=== PATIENT | male | born 1965 | race Caucasian/White ===

== ENCOUNTER 2019-12-11 20:50 | Emergency (ER) | payer BC ==
[~2019-12-11] VITALS: Ht 182.9 cm; Wt 108.9 kg
[~2019-12-11 20:50] MED LIST changes: -FENTANYL CITRATE/PF 100MCG/2 ML INJ ONE; -HEPARIN SOD (PORCINE) 1000 UNIT/ML 30ML ONE; -HEPARIN SOD/SOD CHLORIDE 2,000 ML ONE; -IOPAMIDOL 370 MG/ML 200 ML INFUS..BTL INJ ONE; -LIDOCAINE HCL 2% LOCAL 20 ML VIAL ONE; -MIDAZOLAM HCL 2 MG/2 ML VIAL ONE; -NITROGLYCERIN/D5W 200 MCG/ML 250 ML ONE; -SODIUM CHLORIDE 0.9% 1000ML 1,000 ML ONE; -VERAPAMIL HCL 2.5 MG/ML 2 ML VIAL ONE
--- OUTSIDE RECORDS SUMMARY | 2019-12-11 20:51 | XMS REPORT | Clinical Summary ---
Author Author [place] [facility] Address Unknown Phone Unavailable Care Team Providers Care Hairspring Adjuster Name Role Phone Dre Rivera MD PCP Allergies No Known Allergies [...] Encounters Care Team Description Date Type Specialty oRb Schwab MD EGD WITH BIOPSIES 09/15/2019 Surgery Gastroenterology Rhoda Ventura MD Felan, Veronica Lynn, NP 09/15/2019 Anesthesia Gastroenterology Event Rob Schwab MD 09/15/2019 Hospital Gastroenterology Encounter Mounika Sharma MA Esophageal thickening (Primary Dx) 03/13/2019 Orders Only Cardiothoracic Surg Thomas Dunn MD Encounter for follow-up surveillance of [...] Comments Vital Sign 165/70 09/15/2019 11:37 AM R[employer]ER [employer] Blood Pressure 81 09/15/2019 11:37 AM R[employer] Pulse 36.2 C (97.1 F) 09/15/2019 11:37 AM R[employer] C[employer] Temperature 18 09/15/2019 11:37 AM ROUGHER [employer] C[employer] Respiratory Rate 98% 09/15/2019 11:37 AM ROUGHER [employer] CEMENT Oxygen Saturation - - Inhaled Oxygen Concentration 109 kg (240 lb 9.6 oz) 09/15/2019 10:28 AM R[employer]ER [employer] C[employer] Weight 182.9 cm (6') 09/15/2019 10:28 AM R[employer] C[employer] Height 32.63 09/15/2019 10:28 AM R[employer]ER [employer] CEMENT Body Mass Index Plan of Treatment Health Maintenance Due Date Last Done Comments COLONOSCOPY SCREENING 2013 SHINGLES VACCINES (#1) 2013 INFLUENZA VACCINE 02/21/2020 Implants Device Identifier Shelf Expiration Date Model / Serial / L ot Implanted Type Area Manufactur er [id number] / / Kit Selnt Plrl Air Leak 4ml Strl Surgical N/A: N/A NEOMEND Progel - [id number] Implants; INC Implanted: 12/13/2016 at [facility] Expanders; HOSPITAL (Quantity not on file) Extenders; Surgical Wires Procedures Comments Procedure Name Priority Date/Time Associated Diag nosis SURGICAL PATHOLOGY Routine 09/15/2019 REQUEST 12:50 PM ROUGHER FOR CEMENT ESOPHAGOGASTRODUODENOSCOP 09/15/2019 Family hist ory of Y (EGD) 10:55 AM R[employer]ER [employer] CEMENT malignant neoplasm of digestive organs Abnormal findings on diagnostic imaging of other specified body structures Chronic GERD Personal history of other malignant neoplasm of bronchus and lung Chronic obstructive pulmonary disease, unspecified (HCC) CT CHEST WO CONTRAST Routine 02/28/2019 Personal history of lung 1:24 PM CDT cancer after 12/10/2018 Results * Surgical pathology request (09/15/2019 12:50 PM R[employer]) [facility] DEPARTMENT OF PATHOLOGY AND GENOMIC MEDICINE Surgical See link below for PDF Lab [facility] DEPART [facility] pathology Report OF PATHOLOGY report AND GENOMIC MEDICINE Result status This is Final Report for [facility] DEPARTME NT [id number] OF PATHOLOGY AND GENOMIC MEDICINE Specimen Performing Organization Address City/State/Zipcode Ph one Number [facility] DEPARTMENT OF [address] [place] [id number] PATHOLOGY AND GENOMIC MEDICINE * CT Chest [...] Performing Organization Address City/State/Zipcode Ph one Number [facility] [address] [place] [address] after 12/10/2018 Insurance Type Payer Benefit Subscriber ID Effective Phone Address Plan / Dates Group PPO BCBS BCBS xxxxxxxxxxxx 2018-P CHOICE resent PPO/JENNIFER SAUCEDO PPO [id number] Advance Directives For more information, please contact: [phone] Patient Lump Inspector Explanation Type Date Recorded Advance Directives, 12/07/2016 7:17 AM Living Will and Medical Power of Drapery Supervisor
[2019-12-11] MEDS ORDERED: SODIUM CHLORIDE 0.9% 1000ML 1,000 ML IV STA (20:52)
--- NOTE | 2019-12-11 20:57 | Emergency Department Note ---
History of Present Illnes History of Present Illness Chief Complaint: General Medicine Complaints History of Present Illness This is a 54 year old male brought by family member for evaluation of a syncopal episode after ingesting 3 beers . Patient with cardiac catheterization this AM. States that he may have fallen onto his R UE. Splinted prior to arrival. Historian: Patient, Family Member Toe Puller Required: No Onset (how long ago): second(s) ([employer]) Radiation: non-radiation Severity: moderate Onset quality: sudden Progression: resolved Chronicity: new Context: recent surgery Relieving factors: none Exacerbating factors: none Associated symptoms: denies other symptoms Treatments prior to arrival: none Past Medical/Family History Physician Review I have reviewed the patient's past medical and family history. Any updates have been documented here. Past Medical History Recent Fever: No Clinical Suspicion of Infectio: No New/Unexplained Change in Ment: No Past Medical History: Hypertension Other Surgery: Lung resection Social History Smoking Cessation: Former smoker Counseling Performed: No Alcohol Use: Occasional Any Illegal Drug Use: No Review of Systems Review of Systems Constitutional: no symptoms EENTM: no symptoms Cardiovascular: no symptoms Respiratory: no symptoms Gastrointestinal: no symptoms Genitourinary: no symptoms Musculoskeletal: no symptoms Neurological: other (syncope) Psychological: no symptoms Endocrine: no symptoms Hematological/Lymphatic: no symptoms Review of other systems All other systems reviewed and negative. Physical Exam Related Data Allergies: Coded Allergies: No Known Allergies (Unverified , 12/11/19) Triage Vital Signs Vital Signs Date Time Temp Pulse Resp B/P (MAP) Pulse Ox O2 Delivery O2 Flow Rate FiO2 12/11/19 20:51 97.9 72 16 162/93 99 Vital signs reviewed: Yes Physical Exam CONSTITUTIONAL Constitutional: well-developed, well-nourished HENT HENT: normocephalic, atraumatic, oropharynx clear/moist, nose normal HENT L/R: left ext ear normal, right ext ear normal EYES Eyes: PERRL, conjunctivae normal NECK Neck: ROM normal PULMONARY Pulmonary: effort normal, breath sounds normal CARDIOVASCULAR Cardiovascular: regular rhythm, heart sounds normal, capillary refill normal, normal rate GASTROINTESTINAL Abdominal: soft, nontender, bowel sounds normal GENITOURINARY Genitourinary: exam deferred SKIN Skin: warm, dry MUSCULOSKELETAL Musculoskeletal: ROM normal, tenderness (R UE) NEUROLOGICAL Neurological: alert, oriented x 3, no gross motor or sensory deficits PSYCHOLOGICAL Psychological: mood/affect normal, judgement normal Results Laboratory Lab results reviewed: Yes Laboratory comments Cr elevated mildly Troponin neg. Imaging Imaging results reviewed: Yes Impressions [place] [id number] Patient Name: ELOY RODRÍGUEZ MR #: [id number] : 1965 Age/Sex: 54/M Req #: [id number] Adm Physician: Ordered by: ROM MANSFIELD DO Report #: [id number] Location: ER Room/Bed: Procedure: [id number] DX/WRIST COMPLETE RIGHT Exam Date: 12/11/19 Exam Time: 2199 REPORT STATUS: Signed Exam: Right hand radiographs-3 views; right wrist radiographs-3 views History: Fall. Comparison: None. Findings/Impression: Soft tissue edema in the hand. No evidence of acute fracture or malalignment. There are radiopaque likely overlying densities along the ulnar aspect of the hand. Possible laceration along the dorsal aspect of the fifth finger and in the dorsal hand. Mild scattered degenerative changes. There is a predominantly lucent lesion in the distal ulna which measures up to 1.8 cm. There is mild sclerotic component along the distal aspect. No evidence of periosteal reaction or bony destructive changes. 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 Suggest correlation for any point tenderness. Recommend follow-up radiograph in 6 months. Signed by: Dr. Denis Mccarthy MD on 12/11/2019 11:46 PM Dictated By: DENIS MCCARTHY MD [id number] Transcribed By: SELVIN on 12/11/190 COPY TO: ROM MANSFIELD DO~ [place] [id number] [place] [address] Patient Name: ELOY RODRÍGUEZ MR #: [id number] : 1965 Age/Sex: 54/M Req #: [id number] Adm Physician: Ordered by: ROM MANSFIELD Report #: [id number] Location: ER Room/Bed: Procedure: [id number] DX/HAND RIGHT 2 VIEWS Exam Date: 12/11/19 Exam Time: 0 REPORT STATUS: Signed Exam: Right hand radiographs-3 views; right wrist radiographs-3 views History: Fall. Comparison: None. Findings/Impression: Soft tissue edema in the hand. No evidence of acute fracture or malalignment. There are radiopaque likely overlying densities along the ulnar aspect of the hand. Possible laceration along the dorsal aspect of the fifth finger and in the dorsal hand. Mild scattered degenerative changes. There is a predominantly lucent lesion in the distal ulna which measures up to 1.8 cm. There is mild sclerotic component along the distal aspect. No evidence of periosteal reaction or bony destructive changes. 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 Suggest correlation for any point tenderness. Recommend follow-up radiograph in 6 months. Signed by: Dr. Denis Mccarthy MD on 12/11/2019 11:46 PM Dictated By: DENIS MCCARTHY MD 45 Transcribed By: SELVIN on 12/11/192345 COPY TO: SHYLAROM JACKSON~ [place] [address] Patient Name: ELOY RODRÍGUEZ MR #: [id number] : 1965 Age/Sex: 54/M Req #: [id number] Adm Physician: Ordered by: SHYLA ROM JACKSON Report #: [id number] Location: Room/Bed: ____ Procedure: [id number] CT/CT BRAIN WO Exam Date: 12/11/19 Exam Time: 2199 REPORT STATUS: Signed History:Passed out today. Comparison studies:None Technique: Axial images were obtained from the skull base to the vertex. Coronal and sagittal images reconstructed from the axial data. Intravenous contrast: None Dose modulation, iterative reconstruction, and/or weight based adjustment of the mA/kV was utilized to reduce the radiation dose to as low as reasonably achievable. Findings: Scalp/skull: No abnormalities. Extra-axial spaces: No masses. No fluid collections. Brain sulci: Age-appropriate. Ventricles: Age-appropriate. No hydrocephalus. Parenchyma: No abnormal densities. No masses, hemorrhage, acute or chronic cortical vascular insults. Sellar/suprasellar region: No abnormalities. Craniocervical junction: Patent foramen magnum. No Chiari one malformation. Incidental findings: Atherosclerotic calcifications in the carotid siphons . Impression: No acute abnormalities. Signed by: DR Dannie Evans M.D. on 12/11/2019 10:32 PM Dictated By: DANNIE AMBROSE MD 31 Transcribed By: SELVIN on 12/11/192231 COPY TO: ROM MANSFIELD DO~ [place] [address] Patient Name: ELOY RODRÍGUEZ MR #: [id number] : 1965 [facility] 54[id number] Req #: [id number] Adm Physician: Ordered by: ROM MANSFIELD DO Report #: [id number] Location: ER Room/Bed: Procedure: [id number] CT/CT CHEST W Exam Date: 12/11/19 Exam Time: 2199 REPORT STATUS: Signed EXAM: CT Chest WITH contrast- Pulmonary Embolism Protocol INDICATION: Passed out. COMPARISON: None TECHNIQUE: Chest was scanned utilizing a multidetector helical scanner from the lung apex through the level of the diaphragm after administration of IV contrast. Coronal and sagittal reformations were obtained. Pulmonary embolism protocol was performed. IV CONTRAST: 100 cc of Isovue 370 RADIATION DOSE: Total DLP: 637 mGy*cm Dose modulation, iterative reconstruction, and/or weight based adjustment of the mA/kV was utilized to reduce the radiation dose to as low as reasonably achievable. COMPLICATIONS: None FINDINGS: LINES/ TUBES: None. PULMONARY ARTERIES: Motion artifact somewhat limits evaluation. No filling defect is identified within the pulmonary arteries to the segmental level. The subsegmental pulmonary arteries are not well opacified. Main pulmonary artery measures 2.0 cm in diameter. LUNGS AND AIRWAYS: The central airways are patent. Status post left upper lobectomy. Incidental azygos lobe. Motion artifact somewhat limits evaluation. Moderate upper lung predominant emphysematous changes in the right lung. Likely linear subsegmental atelectasis versus scarring in the left lower lobe at the base. PLEURA: The pleural spaces are clear. HEART AND MEDIASTINUM: The thyroid gland is normal. No mediastinal, hilar or axillary lymphadenopathy. The heart is normal in size.. There is no pericardial effusion. Scattered coronary and aortic atherosclerotic calcifications. UPPER ABDOMEN: Limited contrast-enhanced views of the upper abdomen. There is a 1.6 cm right inferior hepatic lobe hypodense lesion (series 2, image 140; -9 Hounsfield units), likely a cyst. Mild fatty atrophy of the pancreas. Moderate hiatal hernia with mild wall thickening within the distal esophagus. BONES: No acute osseous abnormality. No suspicious lytic or blastic lesions. Left posterior thoracotomy changes in the posterior ninth and eighth ribs. SOFT TISSUES: Unremarkable. IMPRESSION: Somewhat limited by motion artifact. No evidence of pulmonary embolism to the level of the segmental pulmonary arteries. Status post left upper lobectomy. Moderate emphysematous changes in the right lung. Scattered coronary and aortic atherosclerotic calcifications. Moderate hiatal hernia with mild wall thickening within the distal esophagus, which may reflect gastroesophageal reflux with esophagitis. Suggest clinical correlation. Signed by: Dr. 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 Patient AO x 3 prior to discharge in [facility]. Plan to d/c to home with f/u with cardiology as outpatient. Cardiac catheterization report reviewed. Patient's Hand XR reviewed with patient and given outpatient f/u with Dr Inocente Le for further evaluation. Depart Disposition: HOME, SELF-CARE Last Vital Signs Date Time Temp Pulse Resp B/P (MAP) Pulse Ox O2 Delivery O2 Flow Rate FiO2 12/12/19 00:16 98.0 76 17 146/79 97 Home Meds Reported Medications Tiotropium Br/Olodaterol HCl (Stiolto Respimat Inhal [place]) 4 Gm Mist.inhal, 2 INH INH DAILY 12/10/19 Losartan Potassium (LOSARTAN POTASSIUM) 100 Mg Tablet, 100 MG PO DAILY, TAB 12/10/19 Acetaminophen (Tylenol) 325 Mg Capsule, 325 MG PO PRN PRN for mod 12/10/19 Amlodipine Besylate (AMLODIPINE BESYLATE) 5 Mg Tablet, 5 MG PO DAILY, #30 TAB 12/10/19 Pantoprazole Sodium* (PROTONIX) 40 Mg Tablet.dr, 40 MG PO BID, TAB 12/10/19 [place]-3 Fatty Acids/Fish Oil (FISH OIL 1,000 MG CAPSULE) 1 Each Capsule, 1 CAP PO DAILY 12/10/19 Medications in the ED Sodium Chloride 1,000 ml @ 0 mls/hr Q0M STAT IV Last administered on 12/11/19at 22:33; Admin Dose 999 MLS/HR; Start 12/11/19 at 20:52; Stop 12/11/19 at 20:54; Status DC Aspirin 81 mg PRN ONCE PO ; Start 12/11/19 at 21:00; Stop 12/11/19 at 21:17; Status DC Iopamidol 74,000 mg STK-MED ONCE INJ ; Start 12/11/19 at 22:04; Stop 12/11/19 at 21:59; Status DC Sodium Chloride 50 ml @ ud STK-MED ONCE .ROUTE ; Start 12/11/19 at 22:05; Stop 12/11/19 at 21:59; Status DC ROM MANSFIELD DO December 11, 2019 20:57
[2019-12-11] MEDS ORDERED: ASPIRIN 81 MG CHEW TAB PO ONE (21:00)
[2019-12-11 21:16] LABS: BASOPHILS # (AUTO) 0.1 (0.0-0.1); BASOPHILS % 0.7 % (0.0-1.0); EOSINOPHILS # (AUTO) 0.2 (0.0-0.4); EOSINOPHILS % 2.3 % (0.0-6.0); HEMATOCRIT 42.6 % (38.2-49.6); HEMOGLOBIN 14.1 g/dL (14.0-18.0); LYMPHOCYTES # (AUTO) 2.1 (1.0-3.2); LYMPHOCYTES % 29.2 % (18.0-39.1); MEAN CORPUSCULAR HEMOGLOBIN 30.3 pg (28-32); MEAN CORPUSCULAR HGB CONC 33.1 g/dL (31-35); MEAN CORPUSCULAR VOLUME 91.4 fL (81-99); MONOCYTES # (AUTO) 0.5 (0.2-0.8); MONOCYTES % 7.7 % (4.4-11.3); NEUTROPHILS # (AUTO) 4.2 (2.1-6.9); NEUTROPHILS % 59.7 % (38.7-80.0); PLATELET COUNT 288 x10e3/uL (140-360); RED BLOOD COUNT 4.66 x10e6/uL (4.3-5.7); RED CELL DISTRIBUTION WIDTH 13.4 % (11.7-14.4)
[2019-12-11 21:40] LABS: ALBUMIN 3.8 g/dL (3.5-5.0); ALBUMIN/GLOBULIN RATIO 1.1 (0.8-2.0); ANION GAP 17.4 mmol/L (8-16); CALCIUM 9.4 mg/dL (8.4-10.2); CREATININE, SERUM 1.72 mg/dL (0.72-1.25); POTASSIUM 4.4 mmol/L (3.5-5.1)
[2019-12-11 21:46] LABS: CREATINE KINASE MB 0.8 ng/mL (0-5.0)
[2019-12-11] MEDS ORDERED: IOPAMIDOL 370 MG/ML 200 ML INFUS..BTL INJ ONE (22:04)
[2019-12-11] MEDS ORDERED: SODIUM CHLORIDE 0.9% 50ML 50 ML ONE (22:05)
--- NOTE | 2019-12-11 22:35 | Diagnostic Imaging Report ---
History:Passed out today. Comparison studies:None Technique: Axial images were obtained from the skull base to the vertex. Coronal and sagittal images reconstructed from the axial data. Intravenous contrast: None Dose modulation, iterative reconstruction, and/or weight based adjustment of the mA/kV was utilized to reduce the radiation dose to as low as reasonably achievable. Findings: Scalp/skull: No abnormalities. Extra-axial spaces: No masses. No fluid collections. Brain sulci: Age-appropriate. Ventricles: Age-appropriate. No hydrocephalus. Parenchyma: No abnormal densities. No masses, hemorrhage, acute or chronic cortical vascular insults. Sellar/suprasellar region: No abnormalities. Craniocervical junction: Patent foramen magnum. No Chiari one malformation. Incidental findings: Atherosclerotic calcifications in the carotid siphons . Impression: No acute abnormalities. Signed by: DR Dannie Evans M.D. on 12/11/2019 10:32 PM
--- NOTE | 2019-12-11 22:39 | Diagnostic Imaging Report ---
EXAM: CT Chest WITH contrast- Pulmonary Embolism Protocol INDICATION: Passed out. COMPARISON: None TECHNIQUE: Chest was scanned utilizing a multidetector helical scanner from the lung apex through the level of the diaphragm after administration of IV contrast. Coronal and sagittal reformations were obtained. Pulmonary embolism protocol was performed. IV CONTRAST: 100 cc of Isovue 370 RADIATION DOSE: Total DLP: 637 mGy*cm Dose modulation, iterative reconstruction, and/or weight based adjustment of the mA/kV was utilized to reduce the radiation dose to as low as reasonably achievable. COMPLICATIONS: None FINDINGS: LINES/ TUBES: None. PULMONARY ARTERIES: Motion artifact somewhat limits evaluation. No filling defect is identified within the pulmonary arteries to the segmental level. The subsegmental pulmonary arteries are not well opacified. Main pulmonary artery measures 2.0 cm in diameter. LUNGS AND AIRWAYS: The central airways are patent. Status post left upper lobectomy. Incidental azygos lobe. Motion artifact somewhat limits evaluation. Moderate upper lung predominant emphysematous changes in the right lung. Likely linear subsegmental atelectasis versus scarring in the left lower lobe at the base. PLEURA: The pleural spaces are clear. HEART AND MEDIASTINUM: The thyroid gland is normal. No mediastinal, hilar or axillary lymphadenopathy. The heart is normal in size.. There is no pericardial effusion. Scattered coronary and aortic atherosclerotic calcifications. UPPER ABDOMEN: Limited contrast-enhanced views of the upper abdomen. There is a 1.6 cm right inferior hepatic lobe hypodense lesion (series 2, image 140; -9 Hounsfield units), likely a cyst. Mild fatty atrophy of the pancreas. Moderate hiatal hernia with mild wall thickening within the distal esophagus. BONES: No acute osseous abnormality. No suspicious lytic or blastic lesions. Left posterior thoracotomy changes in the posterior ninth and eighth ribs. SOFT TISSUES: Unremarkable. IMPRESSION: Somewhat limited by motion artifact. No evidence of pulmonary embolism to the level of the segmental pulmonary arteries. Status post left upper lobectomy. Moderate emphysematous changes in the right lung. Scattered coronary and aortic atherosclerotic calcifications. Moderate hiatal hernia with mild wall thickening within the distal esophagus, which may reflect gastroesophageal reflux with esophagitis. Suggest clinical correlation. Signed by: Dr. Tereso Chin MD on 12/11/2019 10:35 PM
--- NOTE | 2019-12-11 23:49 | Diagnostic Imaging Report ---
Exam: Right hand radiographs-3 views; right wrist radiographs-3 views History: Fall. Comparison: None. Findings/Impression: Soft tissue edema in the hand. No evidence of acute fracture or malalignment. There are radiopaque likely overlying densities along the ulnar aspect of the hand. Possible laceration along the dorsal aspect of the fifth finger and in the dorsal hand. Mild scattered degenerative changes. There is a predominantly lucent lesion in the distal ulna which measures up to 1.8 cm. There is mild sclerotic component along the distal aspect. No evidence of periosteal reaction or bony destructive changes. 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 Suggest correlation for any point tenderness. Recommend follow-up radiograph in 6 months. Signed by: Dr. Tereso Chin MD on 12/11/2019 11:46 PM
== END 2019-12-12 00:16 | disposition home or self-care (01) ==
LOC: ER 20:50
DX: R55 Syncope and collapse (principal); S00.83XA Contusion of other part of head, initial encounter; R60.9 Edema, unspecified; W18.30XA Fall on same level, unspecified, initial encounter; F10.129 Alcohol abuse with intoxication, unspecified; D49.2 Neoplasm of unspecified behavior of bone, soft tissue, and skin; I10 Essential (primary) hypertension
CPT/HCPCS: 36415; 70450; 71260; 73110; 73120; 80053; 80320; 82550; 82553; 83880; 84484; 85025; 99284; J7030; Q9967

== ENCOUNTER → 2019-12-11 | Day surgery (SDC) | payer BC, OTHER ==
[2019-12-08 12:14] LABS: BASOPHILS # (AUTO) 0.1 (0.0-0.1); BASOPHILS % 0.6 % (0.0-1.0); EOSINOPHILS # (AUTO) 0.2 (0.0-0.4); HEMATOCRIT 41.9 % (38.2-49.6); HEMOGLOBIN 13.8 g/dL (14.0-18.0); LYMPHOCYTES # (AUTO) 2.3 (1.0-3.2); LYMPHOCYTES % 29.1 % (18.0-39.1); MEAN CORPUSCULAR HEMOGLOBIN 30.9 pg (28-32); MEAN CORPUSCULAR HGB CONC 32.9 g/dL (31-35); MEAN CORPUSCULAR VOLUME 93.7 fL (81-99); MONOCYTES # (AUTO) 0.6 (0.2-0.8); MONOCYTES % 7.5 % (4.4-11.3); NEUTROPHILS # (AUTO) 4.7 (2.1-6.9); NEUTROPHILS % 59.5 % (38.7-80.0); PLATELET COUNT 289 x10e3/uL (140-360); RED BLOOD COUNT 4.47 x10e6/uL (4.3-5.7); RED CELL DISTRIBUTION WIDTH 13.4 % (11.7-14.4)
[2019-12-08 12:25] LABS: INR 0.81; PROTHROMBIN TIME 11.7 seconds (11.9-14.5)
[2019-12-08 12:36] LABS: ALBUMIN 3.6 g/dL (3.5-5.0); ANION GAP 13.7 mmol/L (8-16); CALCIUM 9.2 mg/dL (8.4-10.2); CREATININE, SERUM 1.26 mg/dL (0.72-1.25); POTASSIUM 4.7 mmol/L (3.5-5.1)
[~2019-12-11] MED LIST: AMLODIPINE BESYL5 MG PO; FENTANYL CITRATE/PF 100MCG/2 ML INJ ONE; FISH OIL 1,0001 EAC2 PO; HEPARIN SOD (PORCINE) 1000 UNIT/ML 30ML ONE; HEPARIN SOD/SOD CHLORIDE 2,000 ML ONE; IOPAMIDOL 370 MG/ML 200 ML INFUS..BTL INJ ONE; LIDOCAINE HCL 2% LOCAL 20 ML VIAL ONE; LOSARTAN POTAS100 MG PO; MIDAZOLAM HCL 2 MG/2 ML VIAL ONE; NITROGLYCERIN/D5W 200 MCG/ML 250 ML ONE; PANTOPRAZOLE SO40 MG PO; SODIUM CHLORIDE 0.9% 1000ML 1,000 ML ONE; STIOLTO RESPIMAT4 GM INH; TYLENOL325 M2 PO; VERAPAMIL HCL 2.5 MG/ML 2 ML VIAL ONE
[2019-12-11 09:15] VITALS: BP 142/96
[2019-12-11 10:30] VITALS: BP 143/80
--- NOTE | 2019-12-11 10:30 | NUR ---
1030 am RECEIVING NOTE [facility]............................................................... Bedside report received from Franck INIGUEZ. Identifierx2. Alert oriented and appropriate, PERRLA, respirations even and unlabored to room air. Pulses x4 extremities equal and strong. Pedal pulses PT/DP X4 and marked. Cap fill brisk < 3 sec. C rt radial approach No fix,No gross issues pain pallor pressure or dysrhythmia.TR band ok to reduce down at 1030am. Skin warm and dry integrity appears D/I IV 20g to left ac, presents healthy w/o s/s of infiltration or complaint. Abdomen soft and supple. pt offered toileting, denies need to urinate or defecate. No personal affects with patient. Family Jeannette . Pt and family verbalizes understanding of POC. Currently w/o complaint of pain or need. Back to baseline orientation tolerating po intake well.ds/rn
--- NOTE | 2019-12-11 10:30 | NUR ---
1030aRADIAL COMPRESSION REMOVAL NOTE: Initial Cuff volume 13 cc 1030a -3cc Removed No hematoma/bleeding noted with normal neurovascular function. 1045a -5cc Removed No hematoma/ bleeding noted with normal neurovascular function. 1100a -5cc Removed No hematoma/bleeding noted with normal neurovascular function. Air removal completed. Stasis achieved sterile 2x2,Tegaderm, Coban dressing No hematoma, bleeding noted with normal neurovascular function. Wrist splint in place. Pt instructed on POC. Ds/Rn
--- OUTSIDE RECORDS SUMMARY | 2019-12-11 10:37 | XMS REPORT | Clinical Summary ---
Author Author [place] [facility] Address Unknown Phone Unavailable Care Team Providers Care Tankroom Tender Name Role Phone Der Rivera MD PCP Allergies No Known Allergies Medications End Date Status Medication Sig Dispensed Refills Start Date Active ipratropium-albuterol 4 (four) 0 01/10/20 1 (DUO-NEB) 0.5-2.5 mg/mL times a day 8 nebulizer as needed. Active pantoprazole (PROTONIX) Take 40 mg by 0 40 MG EC tablet mouth daily. 0 Active GABAPENTIN ORAL Take by mouth 0 as needed. Active ibuprofen (ADVIL Take by mouth 0 LIQUI-GEL ORAL) as needed. 01/10/2019 gabapentin (NEURONTIN) Take 1 90 capsule 0 300 mg capsule (300 8 capsuleIndications: mg total) by Neuropathic pain mouth 3 (three) times a day. 09/15/2019 Discontinued (Cost of medica tion) glycopyrrolate-formoterol Inhale 2 0 (BEVESPI AEROSPHERE) (two) times a 9-4.8 mcg HFA aerosol day. inhaler Active Problems Problem Noted Date Lung cancer 01/11/2017 Lung nodule 12/13/2016 Encounters Care Team Description Date Type Specialty Rob Schwab MD EGD WITH BIOPSIES 09/15/2019 Surgery Gastroenterology Rhoda Ventura MD Felan, Veronica Lynn, NP 09/15/2019 Anesthesia Gastroenterology Event Rob Schwab MD 09/15/2019 Hospital Gastroenterology Encounter Mounika Sharma MA Esophageal thickening (Primary Dx) 03/13/2019 Orders Only Cardiothoracic Surg hTomas Dunn MD Encounter for follow-up surveillance of lung cancer (Primary Dx); Malignant neoplasm of upper lobe of left lung (HCC) 03/06/2019 Office Visit Cardiothoracic Surg Judith Desouza MA 03/05/2019 Telephone Cardiothoracic Surg Thomas Dunn MD Personal history of lung cancer 02/28/2019 Hospital Radiology Encounter Mounika Sharma MA 02/27/2019 Telephone Cardiothoracic Surg Judith Desouza MA 02/26/2019 Telephone Cardiothoracic Surg lucy magana 12/10/2018 Family History Medical History Relation Name Comments Pancreatic cancer Brother Lung cancer Cousin Heart disease Father Lung cancer Maternal Grandmother Brain cancer Other uncle Colon cancer Other uncle Relation Name Status Comments Brother Cousin Father Maternal Grandmother Other uncle Alive Other uncle Alive Social History Date Tobacco Use Types Packs/Day Years Used Quit: 11/03/2016 Former Smoker Cigarettes 1 48 Smokeless Tobacco: Never Used Tobacco Cessation: Counseling Given: Yes Drinks/Week oz/Week Comments Alcohol Use 10 Cans of beer 10.0 3 beers/night; none last nig ht due to procedure Yes Sex Assigned at Date Recorded Not on file Industry Job Start Date Occupation Not on file Not on file Not on file Travel End Travel History Travel Start No recent travel history available. Last Filed Vital Signs Reading Time Taken Comments Vital Sign 165/70 09/15/2019 11:37 AM ASSEMBLY MECHANIC Blood Pressure 81 09/15/2019 11:37 AM ASSEMBLY MECHANIC Pulse 36.2 C (97.1 F) 09/15/2019 11:37 AM ASSEMBLY MECHANIC Temperature 18 09/15/2019 11:37 AM ASSEMBLY MECHANIC Respiratory Rate 98% 09/15/2019 11:37 AM ASSEMBLY MECHANIC Oxygen Saturation - - Inhaled Oxygen Concentration 109 kg (240 lb 9.6 oz) 09/15/2019 10:28 AM ASSEMBLY MECHANIC Weight 182.9 cm (6') 09/15/2019 10:28 AM ASSEMBLY MECHANIC Height 32.63 09/15/2019 10:28 AM ASSEMBLY MECHANIC Body Mass Index Plan of Treatment Health Maintenance Due Date Last Done Comments COLONOSCOPY SCREENING 2013 SHINGLES VACCINES (#1) 2013 INFLUENZA VACCINE 02/21/2020 Implants Device Identifier Shelf Expiration Date Model / Serial / L ot Implanted Type Area Manufactur er [id number] / / Kit Selnt Plrl Air Leak 4ml Strl Surgical N/A: N/A NEOMEND Progel - [id number] Implants; INC Implanted: 12/13/2016 at [facility] Expanders; HOSPITAL (Quantity not on file) Extenders; Surgical Wires Procedures Comments Procedure Name Priority Date/Time Associated Diag nosis SURGICAL PATHOLOGY Routine 09/15/2019 REQUEST 12:50 PM ASSEMBLY MECHANIC ESOPHAGOGASTRODUODENOSCOP 09/15/2019 Family hist ory of Y (EGD) 10:55 AM ASSEMBLY MECHANIC malignant neoplasm of digestive organs Abnormal findings on diagnostic imaging of other specified body structures Chronic GERD Personal history of other malignant neoplasm of bronchus and lung Chronic obstructive pulmonary disease, unspecified (HCC) CT CHEST WO CONTRAST Routine 02/28/2019 Personal history of lung 1:24 PM CDT cancer after 12/10/2018 Results * Surgical pathology request (09/15/2019 12:50 PM ASSEMBLY MECHANIC) [facility] DEPARTMENT OF PATHOLOGY AND GENOMIC MEDICINE Surgical See link below for PDF Lab [facility] DEPART [facility] pathology Report OF PATHOLOGY report AND GENOMIC MEDICINE Result status This is Final Report for [facility] DEPARTME NT [id number] OF PATHOLOGY AND GENOMIC MEDICINE Specimen Performing Organization Address City/State/Zipcode Ph one Number [facility] DEPARTMENT OF [address] [place] [id number] PATHOLOGY AND GENOMIC MEDICINE * CT Chest Wo Contrast (02/28/2019 1:24 PM CDT) Specimen Narrative Performed At EXAMINATION: RADIANT CT CHEST WO CONTRAST CLINICAL HISTORY: Z85.118 Personal history of other malig nant neoplasm of bronchus and lung, personal history lung cancer TECHNIQUE: Multiple axial images were obtained fro m the lung apices to the lung bases without the administration of intraveno us contrast.The lack of intravenous contrast reduces the sensitivity of det ecting solid organ disease and evaluating vasculature. High-resolution, coronal, and sagittal reformats were obtained.CT imaging was performed with iterative reconstruction technique and/or automated exposure control to reduce radiation dose. COMPARISON: 08/30/2018 FINDINGS: There is focal thickening and mild enha ncement of the distal esophagus. Mass or esophagitis is not excluded. Suggest fu rther evaluation with esophagram or endoscopy. There is a small hiatal vladimir ia. Heart size is normal. The aorta measures within normal limits . The pulmonary artery is within normal limits. A precarinal lymph node is 1.8 x 0.9 cm . Smaller mediastinal lymph nodes are also present. Bilateral multiple lucencies compatible with centrilobular emphysema are greatest in the upper lung zones. A cou ple tiny groundglass nodules are seen in the right upper lobe these are too smal l to well characterize and are nonspecific. Short-term follow-up can be performed to determine if it persists. The largest area is about 3 mm. The liver and spleen are within normal limits in their visible portions. Adrenal glands are within nor mal limits. No suspicious osseous lesion is seen. Degenerative changes of the spine are seen. The liver, gallbladder, pancreas, adren al glands, spleen, and kidneys are within normal limits in their visible portions . A suspicious osseous lesion is not seen. IMPRESSION: Centrilobular emphysema. A few nonspeci fic right upper lobe groundglass nodules. Focal esophageal wall thickening and en hancement. Procedure Note Hm Interface, Radiology Results Incoming - 02/28/2019 1:54 PM CDT EXAMINATION: CT CHEST WO CONTRAST CLINICAL HISTORY: Z85.118 Personal history of other malignant neoplasm of bronchus and lung, personal history lung cancer TECHNIQUE: Multiple axial images were obtained from the lung apices to the lung bases without the administration of intravenous contrast.The lack of intravenous contrast reduces the sensitivity of detecting solid organ disease and evaluating vasculature. High-resolution, coronal, and sagittal reformats were obtained.CT imaging was performed with iterative reconstruction technique and/or automated exposure control to reduce radiation dose. COMPARISON: 08/30/2018 FINDINGS: There is focal thickening and mild enhancement of the distal esophagus. Mass or esophagitis is not excluded. Suggest further evaluation with esophagram or endoscopy. There is a small hiatal hernia. Heart size is normal. The aorta measures within normal limits. The pulmonary artery is within normal limits. A precarinal lymph node is 1.8 x 0.9 cm. Smaller mediastinal lymph nodes are also present. Bilateral multiple lucencies compatible with centrilobular emphysema are greatest in the upper lung zones. A couple tiny groundglass nodules are seen in the right upper lobe these are too small to well characterize and are nonspecific. Short-term follow-up can be performed to determine if it persists. The largest area is about 3 mm. The liver and spleen are within normal limits in their visible portions. Adrenal glands are within normal limits. No suspicious osseous lesion is seen. Degenerative changes of the spine are seen. The liver, gallbladder, pancreas, adrenal glands, spleen, and kidneys are within normal limits in their visible portions. A suspicious osseous lesion is not seen. IMPRESSION: Centrilobular emphysema. A few nonspecific right upper lobe groundglass nodules. Focal esophageal wall thickening and enhancement. Performing Organization Address City/State/Zipcode [facility] Number [facility] [address] [place] [address] after 12/10/2018 Insurance Type Payer Benefit Subscriber ID Effective Phone Address Plan / Dates Group PPO BCBS BCBS xxxxxxxxxxxx 2018-P CHOICE resent PPO/JENNIFER SAUCEDO PPO [id number] Advance Directives For more information, please contact: [phone] Patient Biology Intern Explanation Type Date Recorded Advance Directives, 12/07/2016 7:17 AM Living Will and Medical Power of [employer]icon[employer] Package Symbol Stamper
[2019-12-11 10:45] VITALS: BP 114/74
[2019-12-11 11:00] VITALS: BP 137/77
[2019-12-11 11:30] VITALS: BP 149/61
--- NOTE | 2019-12-11 11:30 | NUR ---
1130 am [facility] DISCHARGE NURSING NOTE Pt meets DC criteria. Rt TR band assessed for s/s of complication and presence of hematoma. Skin warm, dry, no discolor, and pulses present. IV removed from rt ac. Distal tip appears intact. VS WNL. Pt denies pain, sob, or need at this time. Family at BS. Review of discharge paperwork and follow up instructions. verbalized understanding. Pt to wheelchair and transported to front of hospital. Transferred to private vehicle under own strength w/o incident with DC paperwork in hand. - tika/neftaly
--- NOTE | 2019-12-11 15:28 | Operative Report ---
DATE OF PROCEDURE: SURGEON: Alejandro Rivera DO PROCEDURES PERFORMED: 1. Conscious sedation, 26 minutes. 2. Selective coronary angiography x2. 3. Left heart catheterization. PREPROCEDURE DIAGNOSIS: Abnormal stress test. POSTPROCEDURE DIAGNOSIS: No significant coronary artery disease. ESTIMATED BLOOD LOSS: Less than 10 mL. SPECIMENS REMOVED: None. PROCEDURE IN DETAIL: After informed consent was obtained, the patient was brought to the cardiac catheterization laboratory in a fasting and nonsedated state. Bilateral groins and right wrist were prepped and draped in the usual sterile fashion. The patient received fentanyl and midazolam administered by the cytogenetics laboratory manager RN. His conscious state and physiological status were monitored by myself and the cytogenetics laboratory manager staff for 26 minutes. A 2% lidocaine was infiltrated over the right anterior wrist for local anesthesia. Using micropuncture needle, the right radial artery was accessed via modified Seldinger technique and a 6-Norwegian sheath was placed. Next, diagnostic coronary angiography and left heart catheterization was performed using a TIG-4 and multipurpose catheters. The patient tolerated the procedure well with no immediate complications and was transferred to his room in stable condition. PROCEDURAL FINDINGS: 1. Left main coronary artery is patent without significant disease. 2. The left anterior descending artery is patent with mild luminal irregularities. 3. The ramus intermedius coronary artery is small and patent. 4. Left circumflex coronary provides one obtuse marginal vessel is patent. 5. Right coronary is a large dominant vessel with an anterior takeoff. There is no significant coronary artery disease present in this coronary system. 6. Left ventricular end-diastolic pressure was 12 mmHg with no aortic valve gradient present on pullback. Of note, the left ventricular tracing showed a spike in dome appearance without significant gradient on the pullback. IMPRESSION: Abnormal stress test. RECOMMENDATIONS: Continue medical therapy. Alejandro Rivera DO BM/MODL /[id number]
== END | disposition home or self-care (01) ==
LOC: CATH LAB 08:23
PROVIDERS: ATTEND Internal Medicine Cardiovascular Disease
DX: I25.10 Atherosclerotic heart disease of native coronary artery without angina pectoris (principal); R94.39 Abnormal result of other cardiovascular function study; I10 Essential (primary) hypertension; Z01.812 Encounter for preprocedural laboratory examination; Z11.59 Encounter for screening for other viral diseases; Z68.32 Body mass index [BMI] 32.0-32.9, adult
CPT/HCPCS: 36415; 80053; 85025; 85610; 87635; 93458; J1644; J2001; J2250; J3010; J7030; Q9967; 99152; C1769; C1887; C1894

== ENCOUNTER → 2019-12-30 | Outpatient (CLI) | payer BC ==
--- NOTE | 2019-12-30 12:27 | Diagnostic Imaging Report ---
TECHNIQUE: Magnetic resonance imaging of the RIGHT WRIST was performed WITHOUT injected contrast, on a 1.5 lucio magnet. HISTORY: Lucency in the distal ulna COMPARISON: None available. FINDINGS: Bone and bone marrow: No acute fracture. Cystic lesion within the distal ulna involving the diaphysis and metaphysis. Joints: Fluid within the joints is within physiologic limits. Positive ulnar variance. Ligaments: Scapholunate: Intact Lunotriquetral: Intact Triangular fibrocartilage complex: Large central perforation of the TFC. Extrinsic ligaments: Intact Tendons: The flexor and extensor tendons are intact. Carpal tunnel: The median nerve is within normal limits. Other soft tissues: Otherwise, unremarkable. IMPRESSION: Cystic lesion in the distal ulna likely reflects an intraosseous ganglion. Large central perforation of the TFC Signed by: Dr. Dre Echeverria M.D. on 12/30/2019 12:24 PM
== END ==
LOC: MRI 09:21
PROVIDERS: ATTEND Plastic Surgery
DX: M89.8X4 Other specified disorders of bone, hand (principal); M25.831 Other specified joint disorders, right wrist